=== PATIENT | female | born 1970 | race Caucasian/White ===

== ENCOUNTER 2018-04-15 11:12 | Emergency (ER) | payer OTHER ==
[2018-04-15] MEDS ORDERED: 0.9 % SODIUM CHLORIDE 1,000 ML BAG IV ONE (11:19)
[2018-04-15] MEDS ORDERED: KETOROLAC 30 MG/ML VIAL IVP ONE (11:19)
--- NOTE | 2018-04-15 11:30 | Emergency Department Record ---
History of Present Illness - General Chief complaint: Pain Stated complaint: LEFT SIDE PELVIC PAIN Time Seen by Provider: 04/15/18 11:13 Source: Patient Mode of Arrival: Ambulatory Limitations: No limitations - History of Present Illness Initial comments: 47 yo female presents with left lower pelvic pain the last 4 days. The pain actually started in the left lower back then radiated around to the front. The pain has been somewhat intermittent but now steady all day. No fevers. No vomiting. No diarrhea. No hematuria. She has a history of uterine ablation so she does not have normal menstrual cycles. She has a 2pm appointment with her COLORER but could not wait. The pain comes and goes in a wave like sensation. She has had pain similar on the right with a right sided renal stone in the past. No pain down the legs. No weakness. She denies any specific injury but she was doing some lifting. She is normally a health individual MD Complaint: Abdominal Pain -: Days(s) (4) Location: Left, Other History of Same: Yes Radiation: Distal Quality: Aching Consistency: Constant Improves with: Nothing Associated Symptoms: Denies other symptoms - Related Data Home Medications Medication Instructions Recorded Confirmed Last Taken Sumatriptan [Imitrex] 5 mg NS ASDIR 04/15/18 04/15/18 Unknown Allergies Allergy/AdvReac Type Severity Reaction Status Date / Time topiramate [From Topamax] Allergy Severe BLURRED Verified 04/15/18 11:22 VISION Review of Systems Constitutional: Denies: Chills, Fever, Malaise, Weakness Eyes: Denies: Eye discharge ENT: Denies: Congestion, Throat pain Respiratory: Denies: Cough Cardiovascular: Denies: Chest pain, Palpitations, Syncope Endocrine: Denies: Fatigue Gastrointestinal: Reports: As per HPI, Abdominal pain. Denies: Diarrhea, Nausea , Vomiting Genitourinary: Denies: Dysuria, Urgency Musculoskeletal: Reports: Back pain. Denies: Arthralgia Skin: Denies: Bruising, Change in color, Rash Neurological: Denies: Headache, Numbness, Weakness Psychiatric: Denies: Anxiety Hematological/Lymphatic: Denies: Blood Clots, Easy bleeding, Easy bruising, Swollen glands Physical Exam - General General Appearance: Alert, Oriented x3, Cooperative, No acute distress Limitations: No limitations - Head Head exam: Normal inspection - Eye Eye exam: Normal appearance. negative: Conjunctival injection, Scleral icterus - ENT ENT exam: Normal exam Ear exam: Normal external inspection Nasal Exam: Normal inspection Mouth exam: Normal external inspection - Neck Neck exam: Normal inspection, Full ROM. negative: Tenderness - Respiratory Respiratory exam: Normal lung sounds bilaterally. negative: Respiratory distress - Cardiovascular Cardiovascular Exam: Regular rate, Normal rhythm, Normal heart sounds - GI/Abdominal GI/Abdominal exam: Soft, Tenderness (tender lower left pelvic area.) - Rectal Rectal exam: Deferred - Extremities Extremities exam: Normal inspection - Neurological Neurological exam: Alert, Normal gait, Oriented X3 - Psychiatric Psychiatric exam: Normal affect, Normal mood - Skin Skin exam: Dry, Intact, Normal color, Warm Course - Reevaluation(s) Reevaluation #1: 04/15/18 12:10 The labs were reviewed No acute changes on the CBC The CMP was normal The UA had trace blood. The CT was ordered and completed 04/15/18 12:[address] was reviewed with the radiologist. The appendix and ovaries are normal size. No significant cysts. 04/15/18 12:32 I discussed the results with the patient. I discussed the recommendation for pelvic examination as well. She declined since she has a 2pm US with her COLORER and an appointment follow. She only requests one pelvic today. There are no acute findings on the CT. No stones, phlebeliths are presents, normal appendix, no free fluid, no free air, L5 lumbar degenerative changes. We discussed no acute findings to suggest an emergent process but the US and COLORER follow up in 2 hours are logical next steps. Medical Decision Making - Lab Data Result diagrams: 04/15/18 11:25 04/15/18 11:25 Disposition Disposition: Discharge Clinical Impression: Pelvic pain Disposition: Home, Self-Care Condition: (1) Good Instructions: Pelvic Pain in Women (ED) Additional Instructions: Follow up in 2 hours as scheduled with your doctor and the Ultrasound Return if worse, fever, rechecks or any new concerns Forms: Patient Portal Access Time of Disposition: 12:39 Quality - Quality Measures Quality Measures: N/A - Blood Pressure Screening Does Patient Have Any of the Following: No Blood Pressure Classification: Normal BP Reading Systolic Measurement: 104 Diastolic Measurement: 61 Screening for High Blood Pressure: < Normal BP, F/U Not Required > [G8783]
[2018-04-15 11:39] LABS: BASO % 0.5 % (0-6); EOS % 2.6 % (0-6); GRAN % 62.4 % (47-80); HEMATOCRIT 44.4 % (35.0-47.0); HEMOGLOBIN 14.4 gm/dl (11.6-16.0); LYMPH % 25.9 % (16-45); MEAN CORPUSCULAR HEMOGLOBIN 29.5 pg (27-33); MEAN CORPUSCULAR HGB CONC 32.4 g/dl (32-36); MEAN PLATELET VOLUME 9.9 fl (7.4-10.4); MONO % 8.6 % (0-9); PLATELET COUNT 304 K/uL (130-400); RED BLOOD COUNT 4.88 M/uL (3.80-5.40); RED CELL DISTRIBUTION WIDTH 13.3 % (11.5-14.5); WHITE BLOOD COUNT W/O DIFF 9.3 K/uL (4.2-12.2)
[2018-04-15 11:40] LABS: URINE APPEARANCE CLEAR; URINE BILIRUBIN NEGATIVE (NEGATIVE); URINE BLOOD TRACE-I (NEGATIVE); URINE COLOR YELLOW; URINE GLUCOSE (UA) NEGATIVE (NEGATIVE); URINE KETONE NEGATIVE (NEGATIVE); URINE LEUKOCYTE ESTERASE NEGATIVE (NEGATIVE); URINE NITRITE NEGATIVE (NEGATIVE); URINE PROTEIN NEGATIVE (NEGATIVE); URINE UROBILINOGEN 0.2 E.U./dL (0.20 - 1.00)
[2018-04-15 11:46] LABS: URINE EPITHELIAL CELLS 0 - 2 (FEW); URINE MUCUS MODERATE; URINE WBC NONE SEEN (0-2/hpf)
[2018-04-15 11:49] LABS: BLOOD UREA NITROGEN 13 mg/dL (6-20); CREATININE 0.7 mg/dL (0.5-0.9); EST GLOMERULAR FILTRATION RATE > 60 mL/min
[2018-04-15 11:50] LABS: TOTAL PROTEIN 7.2 g/dL (6.6-8.7)
[2018-04-15 11:52] LABS: GLUCOSE,RANDOM 104 mg/dL (74-109)
[2018-04-15 11:54] LABS: ALB/GLOB RATIO 1.8 (1.1-1.8); ALBUMIN 4.6 g/dL (4.0-5.0); ALT/SGPT 13 U/L (<33); AST/SGOT 16 U/L (10.0-35.0)
[2018-04-15 11:55] LABS: ALKALINE PHOSPHATASE 80 U/L (35-104)
[2018-04-15] MEDS ORDERED: HYOSCYAMINE SULFATE ODT 0.125 MG TAB.SUBL SL ONE (12:32)
[2018-04-15] MEDS ORDERED: HYDROMORPHONE HCL 2 MG/ML VIAL IVP ONE (12:32)
--- NOTE | 2018-04-16 15:29 | CT SCAN REPORT ---
EXAM: EMERGENCY CT OF THE ABDOMEN AND PELVIS WITHOUT CONTRAST HISTORY: LEFT FLANK AND LEFT LOWER QUADRANT PAIN FOR SEVERAL DAYS. PRIOR TONSILLECTOMY, TUBAL LIGATION, AND BREAST AUGMENTATION. TECHNIQUE: Axial CT scan of the abdomen and pelvis was performed without oral or IV contrast. Comparison: None. FINDINGS: The upper scans demonstrate some oval low attenuation density within the left breast in particular likely representing the inferior aspect of the history of breast implants. No calcified gallstones are seen within the gallbladder. No intrarenal calculi identified in either kidney. No hydronephrosis or hydroureter is seen. As such it is somewhat difficult to follow the entire course of both ureters in their nondilated state throughout the retroperitoneum and pelvis. There is a small right sided pelvic calcification, but this is on the patient's nonsymptomatic side and I believe this is a small phlebolith immediately adjacent to the ureter rather than an actual ureteral calculus within the lower right ureter. There is also a small calcification in the left side of the pelvis. This to I believe is just posterior to the left ureter rather than within the left ureter and is likely just a phlebolith. No definite ureteral calculus seen on either side and no bladder calculus evident. The uterus is tilted slightly towards the right. There are a few small low attenuation masses in the right lobe of the liver with the largest measuring about 12.7 mm in size. These are incompletely evaluated without IV contrast although has a noncontrast CT of 9 and may well represent a small cyst, with presumably all three of these small low attenuation masses either small cysts or hemangiomas. This could be confirmed with a follow-up MRI of the liver if not previously documented and felt clinically warranted. Small periumbilical anterior abdominal wall hernia containing adipose tissue, but no bowel. Evaluation of the bowel and viscera is very limited without oral or IV contrast. Given this limitation, no definite splenic, adrenal, pancreatic, or renal mass identified. Mild diverticulosis left side of the colon, but no diverticulitis evident. The appendix is visualized and appears negative with no appendicitis evident. No free intraperitoneal air or free intraperitoneal fluid identified. There is bilateral spondylolysis of L5, but no appreciable spondylolisthesis of L5 on S1. IMPRESSION: 1. SINGLE SMALL PELVIC CALCIFICATIONS BILATERALLY ARE PROBABLY PHLEBOLITHS ADJACENT TO THE URETERS RATHER THAN ACTUAL NONOBSTRUCTING URETERAL CALCULI ON EITHER SIDE. 2. THE APPENDIX APPEARS NEGATIVE. NO FREE AIR OR FREE FLUID EVIDENT. 3. THERE ARE THREE SMALL LOW ATTENUATION MASSES IN THE LIVER, INCOMPLETELY EVALUATED WITHOUT IV CONTRAST, BUT ARE PROBABLY SMALL CYSTS OR HEMANGIOMAS. 4. SMALL PERIUMBILICAL ANTERIOR ABDOMINAL WALL HERNIA CONTAINING ADIPOSE TISSUE , BUT NO BOWEL. 5. BILATERAL SPONDYLOLYSIS OF L5, BUT NO SPONDYLOLISTHESIS EVIDENT. JOB NUMBER: [id number] MTDD
== END 2018-04-15 13:17 | disposition home or self-care (01) ==
LOC: ER 11:12
DX: R10.2 Pelvic and perineal pain (principal); M54.5 Low back pain
CPT/HCPCS: 99284 ×2; 96374; 96375; 85025; 80053; 81001; 84703; 74176; J1980; J1885; J1170; J7030